=== PATIENT | male | born 1980 | race Hispanic/Latino ===

== ENCOUNTER 2018-04-06 15:54 | Emergency (ER) | payer OTHER ==
[~2018-04-06] VITALS: Ht 193 cm; Wt 81.6 kg
== END 2018-04-06 18:25 | disposition home or self-care (01) ==
LOC: ED 15:54
DX: M79.1 Myalgia (principal); X50.1XXA Overexertion from prolonged static or awkward postures, initial encounter
CPT/HCPCS: 99283

== ENCOUNTER 2018-05-17 12:10 | Emergency (ER) | payer OTHER ==
[~2018-05-17] VITALS: Ht 193 cm; Wt 72.6 kg
[2018-05-17 13:22] LABS: PLATELET COUNT 215 K/uL (142-355)
[2018-05-17 13:26] LABS: POTASSIUM 3.7 mmol/L (3.6-5.2)
[2018-05-18 08:15] VITALS: BP 112/80; TEMP 98
== END 2018-05-22 15:36 | disposition other institution (70) ==
LOC: ED 12:57
PROVIDERS: Internal Medicine
DX: F32.89 Other specified depressive episodes (principal)
CPT/HCPCS: 36415; 80053; 80307; 80320; 80329; 81000; 84443; 85027; 96372; 99285; J1630